=== PATIENT | female | born 1990 | race African-American/Black ===

== ENCOUNTER 2021-09-17 06:16 | Inpatient (IN) | payer MEDICAID, OTHER ==
[~2021-09-17] VITALS: Ht 172.7 cm; Wt 146.5 kg
[2021-09-17] MEDS ORDERED: SODIUM CHLORIDE 0.9% 1,000 ML IV SCH (06:30)
[2021-09-17] MEDS ORDERED: OXYTOCIN 10 UNITS/ML 1ML ONE (07:57)
[2021-09-17 08:01] LABS: BASOPHILS % 0.5 % (0.0-2.0); EOSINOPHILS % 1.1 % (0.0-5.0); HEMATOCRIT. 38.8 % (36.0-48.0); HEMOGLOBIN. 13.2 g/dL (12.0-16.0); LYMPHOCYTES % 12.5 % (20.0-50.0); MEAN CORPUSCULAR HEMOGLOBIN 31.1 pg (28.0-32.0); MEAN CORPUSCULAR VOLUME 91.7 fL (81.0-99.0); MEAN PLATELET VOLUME 7.2 fl (7.4-10.4); MONOCYTES % 6.2 % (2.0-8.0); NEUTROPHILS % 79.7 % (40.0-76.0); PLATELET 283 x1000/uL (130-400); RED BLOOD CELL COUNT 4.24 mill/uL (4.2-5.4); RED CELL DISTRIBUTION WIDTH 13.6 % (11.6-14.6)
[2021-09-17] MEDS ORDERED: RHO(D) IMMUNE GLOBULIN 300 MCG/SYR IM PRN (08:15)
[2021-09-17] MEDS ORDERED: IBUPROFEN 400MG TABLET PO PRN (08:15)
[2021-09-17 08:44] LABS: HEPATITIS B SURFACE AB 110.1 mIU/mL
[2021-09-17 08:57] LABS: CHLORIDE 106 mEq/L (98-107)
[2021-09-17] MEDS: OXYTOCIN 20 UNITS in LACTATED RINGERS 1,000 ML IV SCH ×2 (10:28→16:32)
[2021-09-17] MEDS ORDERED: MISOPROSTOL 200MCG TABLET RC NR (10:30)
[2021-09-17] MEDS ORDERED: METHYLERGONOVINE MALEATE 0.2 MG/ML ONE (10:41)
[2021-09-17] MEDS ORDERED: METHYLERGONOVINE MALEATE 0.2 MG/ML IM NR (10:41)
[2021-09-17 12:10] LABS: CLARITY URINE TURBID (CLEAR); COLOR URINE RED (YELLOW); KETONES URINE 1+ (NEGATIVE); LEUKOCYTE ESTERASE URINE 2+ (NEGATIVE); NITRITE URINE POSITIVE (NEGATIVE); OCCULT BLOOD URINE 2+ (NEGATIVE); PROTEIN URINE 2+ (NEGATIVE); SPECIFIC GRAVITY URINE 1.024 (1.005-1.030); UROBILINOGEN URINE 0.2 E.U./dL (0.2-1.0)
[2021-09-17 12:38] LABS: *AMPHETAMINES SCREEN URINE NEGATIVE (NEGATIVE); *BARBITURATES SCREEN URINE NEGATIVE (NEGATIVE); *BENZODIAZEPINES SCREEN URINE NEGATIVE (NEGATIVE); *COCAINE SCREEN URINE NEGATIVE (NEGATIVE)
[2021-09-17 12:39] LABS: METHADONE URINE SCREEN NEGATIVE (NEGATIVE); OPIATES URINE SCREEN NEGATIVE (NEGATIVE); PHENCYCLIDINE URINE SCREEN NEGATIVE (NEGATIVE)
[2021-09-17 12:43] LABS: CANNABINOID URINE SCREEN PRESUMTIVE POSITIVE (NEGATIVE)
[2021-09-17 14:40] VITALS: BP 110/68
[2021-09-17 16:00] VITALS: BP 112/76
[2021-09-17] MEDS: IBUPROFEN 800MG TABLET PO PRN ×2 (16:49→22:51)
[2021-09-17 19:40] VITALS: BP 116/77
[2021-09-17] MEDS ORDERED: ACETAMINOPHEN WITH CODEINE 300/30MG TABLET PO NR (19:50)
[2021-09-18 00:45] VITALS: BP 119/81
[2021-09-18 04:30] VITALS: BP 121/76
[2021-09-18] MEDS: IBUPROFEN 800MG TABLET PO PRN (05:18)
[2021-09-18 07:04] LABS: BASOPHILS % 0.3 % (0.0-2.0); EOSINOPHILS % 2.2 % (0.0-5.0); HEMATOCRIT. 33.4 % (36.0-48.0); HEMOGLOBIN. 11.3 g/dL (12.0-16.0); LYMPHOCYTES % 21.4 % (20.0-50.0); MEAN CORPUSCULAR HEMOGLOBIN 31.1 pg (28.0-32.0); MEAN CORPUSCULAR VOLUME 91.9 fL (81.0-99.0); MEAN PLATELET VOLUME 6.9 fl (7.4-10.4); MONOCYTES % 6.9 % (2.0-8.0); NEUTROPHILS % 69.2 % (40.0-76.0); PLATELET 251 x1000/uL (130-400); RED BLOOD CELL COUNT 3.63 mill/uL (4.2-5.4); RED CELL DISTRIBUTION WIDTH 13.5 % (11.6-14.6)
[2021-09-18 08:21] VITALS: BP 117/61
[2021-09-18] MEDS ORDERED: INFLUENZA VACCINE 05/PF 0.5 ML SYRINGE IM ONE (09:30)
[2021-09-18] MEDS ORDERED: TETANUS, DIPHTHERIA, PERTUSSIS VAC/PF 0.5ML (>10YR OLD) IM ONE (09:30)
[2021-09-18] MEDS ORDERED: ACETAMINOPHEN WITH CODEINE 300/30MG TABLET PO NR (10:00)
== END 2021-09-18 10:15 | disposition home or self-care (01) | DRG 806 ==
LOC: OBSVTOIN 06:16 → 8 EST LDRP 06:16 → 8EST 14:27
PROVIDERS: ADMIT Obstetrics & Gynecology; ATTEND Obstetrics & Gynecology
PROC: 10E0XZZ Delivery of Products of Conception, External Approach (ICD-10-PCS; principal; 2021-09-17)
DX: O60.12X0 Preterm labor second trimester with preterm delivery second trimester, not applicable or unspecified (principal); O36.4XX0 Maternal care for intrauterine death, not applicable or unspecified; Z37.1 Single stillbirth; O24.912 Unspecified diabetes mellitus in pregnancy, second trimester; O42.912 Preterm premature rupture of membranes, unspecified as to length of time between rupture and onset of labor, second trimester; O69.81X0 Labor and delivery complicated by cord around neck, without compression, not applicable or unspecified; J45.909 Unspecified asthma, uncomplicated; O24.92 Unspecified diabetes mellitus in childbirth; O99.52 Diseases of the respiratory system complicating childbirth; Z20.822 Contact with and (suspected) exposure to COVID-19; Z3A.21 21 weeks gestation of pregnancy; Z79.4 Long term (current) use of insulin
CPT/HCPCS: 36415; 76805; 80053; 80305; 80349; 81003; 82962; 85025; 86592; 86703; 86706; 86762; 86850; 86900; 87426; 88307; 90686; 90715; 99281; G0378; J2210; J7030; J7120

== ENCOUNTER 2022-03-22 02:39 | Emergency (ER) | payer OTHER ==
[~2022-03-22] VITALS: Ht 172.7 cm; Wt 135.0 kg
[2022-03-22 05:36] LABS: EOSINOPHILS % 2.9 % (0.0-5.0); HEMATOCRIT. 40.6 % (36.0-48.0); LYMPHOCYTES % 30.6 % (20.0-50.0); MEAN CORPUSCULAR HEMOGLOBIN 31.6 pg (28.0-32.0); MEAN CORPUSCULAR VOLUME 91.5 fL (81.0-99.0); MONOCYTES % 6.4 % (2.0-8.0); NEUTROPHILS % 59.1 % (40.0-76.0); PLATELET 312 x1000/uL (130-400); RED BLOOD CELL COUNT 4.44 mill/uL (4.2-5.4); RED CELL DISTRIBUTION WIDTH 13.9 % (11.6-14.6)
[2022-03-22 05:50] LABS: CLARITY URINE CLEAR (CLEAR); COLOR URINE YELLOW (YELLOW); KETONES URINE NEGATIVE (NEGATIVE); LEUKOCYTE ESTERASE URINE NEGATIVE (NEGATIVE); NITRITE URINE NEGATIVE (NEGATIVE); OCCULT BLOOD URINE 2+ (NEGATIVE); PROTEIN URINE NEGATIVE (NEGATIVE); SPECIFIC GRAVITY URINE 1.017 (1.005-1.030); UROBILINOGEN URINE 0.2 E.U./dL (0.2-1.0)
[2022-03-22 06:05] LABS: CHLORIDE 102 mEq/L (98-107)
[2022-03-22 07:00] VITALS: BP 120/81
[2022-03-22] MEDS ORDERED: DICL50TA9 MT (07:01)
== END 2022-03-22 07:00 | disposition home or self-care (01) ==
LOC: ER 02:39
DX: R09.1 Pleurisy (principal)
CPT/HCPCS: 36415; 71045; 80053; 81003; 81025; 83880; 84484; 85025; 93005; 99285

== ENCOUNTER 2023-07-17 13:14 | Emergency (ER) | payer MEDICAID, OTHER ==
[~2023-07-17] VITALS: Ht 167.6 cm; Wt 136.0 kg
[~2023-07-17 13:14] MED LIST: DICL50TA9 MT
[2023-07-17 13:16] VITALS: BP 112/78; PULSE 84; RESP 16; TEMP 98; O2SAT 99
[2023-07-17] MEDS ORDERED: ONDANSETRON HCL 4MG/2ML INJ IV STA (13:40)
[2023-07-17] MEDS ORDERED: MORPHINE SULFATE 4 MG/ML CPJ (NOT FOR IM USE) IV STA (13:40)
[2023-07-17] MEDS ORDERED: SODIUM CHLORIDE 0.9% 1,000 ML IV ONE (13:45)
== END 2023-07-17 14:30 | disposition home or self-care (01) ==
LOC: ER 13:14
DX: R10.11 Right upper quadrant pain (principal); R11.2 Nausea with vomiting, unspecified; R07.89 Other chest pain; J45.909 Unspecified asthma, uncomplicated; E11.9 Type 2 diabetes mellitus without complications
CPT/HCPCS: 99283; J7030